=== PATIENT | female | born 1985 | race Caucasian/White ===

== ENCOUNTER 2022-07-20 22:14 | Emergency (ER) | payer SELFPAY ==
[2022-07-20 22:14] VITALS: BP 148/79; PULSE 114; RESP 16; TEMP 36.8; O2SAT 97; BMI 31.8
[2022-07-20 22:16] VITALS: BP 148/79; PULSE 115; O2SAT 97
[2022-07-20 22:30] VITALS: BP 141/82; PULSE 108; O2SAT 96
--- NOTE | 2022-07-20 22:50 | CT_ITS ---
PROCEDURE INFORMATION: Exam: CT Head Without Contrast Exam date and time: 07/20/2022 11:55 PM Age: 37 years old Clinical indication: Stroke-like symptoms; Generalized numbness/paresthesia; Additional info: New numbness, paresthesias TECHNIQUE: Imaging protocol: Computed tomography of the head without contrast. Radiation optimization: All CT scans at this facility use at least one of these dose optimization techniques: automated exposure control; mA and/or kV adjustment per patient size (includes targeted exams where dose is matched to clinical indication); or iterative reconstruction. Other technique: STROKE PROTOCOL was implemented. COMPARISON: HEADWO CT head/brain wo con 12/31/2018 1:06 PM FINDINGS: Brain: Normal appearing brain parenchyma without intraparenchymal hemorrhage and normal cain-white matter differentiation/no obvious acute ischemic stroke. No intra-or extra-axial fluid collection, no supra-or infratentorial mass, no mass effect or midline shift. Cerebral ventricles: Ventricles, sulci and basal cisterns are normal in size without hydrocephalus. Paranasal sinuses: No significant mucoperiosteal thickening in the visualized paranasal sinuses. Mastoid air cells: No mastoid effusion. Bones/joints: Visualized skull bones are grossly normal. Soft tissues: NA IMPRESSION: No evidence of an acute intracranial hemorrhage, mass lesion or obvious acute ischemic infarction. ASSESSMENT: ASPECTS ([place] Stroke Program Early CT Score) is 10.
--- NOTE | 2022-07-20 22:50 | CT_ITS ---
PROCEDURE INFORMATION: Exam: CTA Head With Contrast, Arteriography Exam date and time: 07/20/2022 11:56 PM Age: 37 years old Clinical indication: Stroke-like symptoms; Generalized numbness/paresthesia; Additional info: New numbness, paresthesias TECHNIQUE: Imaging protocol: Computed tomographic angiography of the head with contrast. Exam focused on the arteries. 3D rendering (Not supervised by radiologist): MIP and/or 3D reconstructed images were created by the technologist. Radiation optimization: All CT scans at this facility use at least one of these dose optimization techniques: automated exposure control; mA and/or kV adjustment per patient size (includes targeted exams where dose is matched to clinical indication); or iterative reconstruction. Contrast material: ISVOUE 370; Contrast volume: 100 ml; Contrast route: INTRAVENOUS (IV); COMPARISON: CT HEAD/BRAIN WO CON 07/20/2022 11:55 PM FINDINGS: ANTERIOR CIRCULATION: Intracranial INTERNAL CAROTID arteries: Intracranial internal carotid arteries are without flow limiting stenosis. . MIDDLE cerebral arteries: M1, M2 and their distal visualized branches are without flow limiting stenosis. . ANTERIOR cerebral arteries: A1, A2 and their distal visualized branches are without flow limiting stenosis. Anterior communicating artery is unremarkable. . POSTERIOR CIRCULATION: VERTEBRAL arteries: Intracranial vertebral arteries and their visualized branches are without flow limiting stenosis. . BASILAR artery: The basilar artery and its visualized proximal branches are without flow limiting stenosis. . POSTERIOR cerebral arteries: P1, P2 and their distal visualized branches are without flow limiting stenosis. IMPRESSION: NO acute flow-limiting stenosis or aneurysm of the CENTRAL/major intracranial arteries. COMMENTS: Recommend followup with MRI if persistent/new/worsening symptoms or symptoms unexplained by the current study.
--- NOTE | 2022-07-20 22:50 | CT_ITS ---
PROCEDURE INFORMATION: Exam: CTA Neck With Contrast Exam date and time: 07/20/2022 11:56 PM Age: 37 years old Clinical indication: Stroke-like symptoms; Generalized numbness/paresthesia; Additional info: New numbness, paresthesias TECHNIQUE: Imaging protocol: Computed tomographic angiography of the neck with contrast. 3D rendering (Not supervised by radiologist): MIP and/or 3D reconstructed images were created by the technologist. Radiation optimization: All CT scans at this facility use at least one of these dose optimization techniques: automated exposure control; mA and/or kV adjustment per patient size (includes targeted exams where dose is matched to clinical indication); or iterative reconstruction. Contrast material: ISOVUE 370; Contrast volume: 100 ml; Contrast route: INTRAVENOUS (IV); COMPARISON: CT HEAD/BRAIN WO CON 07/20/2022 11:55 PM FINDINGS: THORACIC VESSELS: Visualized aortic arch is unremarkable. No significant narrowing of the origin of the neck vessels. . CAROTID VESSELS: Common carotid arteries: Common carotid arteries are without acute flow limiting stenosis. . Cervical internal CAROTID arteries: No acute flow-limiting stenosis of the cervical internal carotid arteries. No evidence of an aneurysm or a dissection. . VERTEBRAL VESSELS: VERTEBRAL arteries: Cervical vertebral arteries are without acute flow limiting stenosis. . OTHER STRUCTURES: Tonsillar enlargement with numerous mild to moderately enlarged reactive lymph nodes in the neck. Dependent atelectasis and groundglass opacities in the lung apices. IMPRESSION: 1. NO acute flow-limiting stenosis, no occlusion, aneurysm or dissection of the carotid and vertebral arteries in the neck. 2. Findings suspicious for tonsillitis/upper respiratory tract infection and reactive lymphadenitis. REFERENCES: NASCET CRITERIA. The degree of stenosis in the cervical segment of the internal carotid artery is based on NASCET criteria. Normal is no stenosis. Mild is less than 50% stenosis. Moderate is 50-69% stenosis. Severe is 70% to 99% stenosis. Total occlusion is no detectable patent lumen.
--- NOTE | 2022-07-20 22:56 | [facility].EDGENADL ---
Discharge Plan Disposition Patient Disposition: Home, Self-Care Condition: Good Referrals Follow up/Referrals: Provider,Referral, [Primary Care Provider] - See instructions Activity Restrictions/Add. Instructions Additional Instructions/Restrictions: You were evaluated in the emergency department today. Please follow-up with your primary care provider over the next 48 hours. Return to the emergency department for any new or worsening symptoms. Clinical Impressions Clinical Impression: Numbness and tingling Discharge ED Provider: Sary Downey General Adult HPI General Chief complaint: Neuro Symptoms/Deficit Stated complaint: REED & Nausea Time Seen by Provider: 07/20/22 22:20 Mode of Arrival: EMS Source of Information: Patient Limitations: No Limitations Description of Symptoms (Recalled from ER Triage Doc. by RN): pt c/o face feeling weird and arm and lags feeling heavy that started around 9pm History of Present Illness HPI narrative: This patient is a 37-year-old female presented to the emergency department for evaluation of generalized numbness and tingling and a feeling of being unwell. She states that this started around 9:00 PM after she got off the phone with her [id number]. She states that she tried to take a shower to see if that made her symptoms better, however it did not. She complains of numbness and tingling sensation on her entire body, from head to toes, both sides. No vision changes, weakness, facial droop, or other concerns noted at this time. No recent infectious symptoms, though her children at home do have mono. She was well prior to 9 PM when the symptoms started. Related Data Allergies Allergy/AdvReac Type Severity Reaction Status Date / Time No Known Allergies Allergy Verified 12/31/18 11:58 [facility] Social History Smoking Status: Never smoker alcohol intake: never current occupational status: employed Travel in the last 8 weeks: None ROS Obtained: Yes All systems reviewed & no additional complaints except as documented 14 point review of systems obtained and otherwise negative except as mentioned in HPI Physical Exam General General appearance: alert and in no apparent distress Head Head exam: atraumatic and normocephalic Eye Eye exam: Present normal appearance, PERRL and EOMI ENT ENT exam: Present normal exam and normal oropharynx Neck Neck exam: Present normal inspection and full ROM Chest Chest inspection: Present normal inspection and symmetric chest wall rise Respiratory Respiratory exam: Present normal lung sounds bilaterally and respiratory distress Cardiovascular Cardiovascular exam: Present regular rate and normal rhythm Abdominal Exam Abdominal exam: Present soft; Absent distention, tenderness or guarding Extremities Exam Extremities exam: Present normal inspection and full ROM Back Exam Back exam: Present normal inspection Neurological Exam Neurological exam: Present alert, oriented X3 and CN II-XII intact; Absent motor sensory deficit Expanded Neurological Exam Patient oriented to: Present person, place and time Cranial nerves: Normal: EOM function (II, III, IV, ), facial sensation (V), facial palsy (VII), spinal accessory function (XI) and tongue deviation (XII) Cerebellar function: Normal: finger to nose and heel to shi Motor strength - LUE: 5/5 Motor strength - RUE: 5/5 Motor strength - LLE: 5/5 Motor strength - RLE: 5/5 Psychiatric Psychiatric exam: Present normal affect and normal mood Skin Skin exam: Present warm and dry Medical Decision Making Medical Records Medical records reviewed: Yes I reviewed the patient's medical records. Chris Inquiry Pt receiving controlled substance: No Vital Signs: 07/20/22 22:14 07/20/22 23:31 07/20/22 22:16 Temperature 98.3 F Temperature Source Oral Pulse Rate 91 H 115 H Pulse Rate [Right] 114 H Respiratory Rate 16 Blood Pressure
[2022-07-20 23:00] VITALS: BP 131/95; PULSE 108; O2SAT 92
[2022-07-20 23:07] LABS: Basophils # 0.1 K/mm3 (0-0.2); Basophils % 0.8 % (0.1-2.0); Eosinophils # 0.1 K/mm3 (0.0-0.4); Eosinophils % 0.6 % (0.1-12.0); Hematocrit 40.4 % (37.0-47.0); Hemoglobin 13.4 g/dL (12.2-16.2); Lymphocytes # 2.6 K/mm3 (0.7-4.5); Lymphocytes % 22.1 % (10-50); Mean Corpuscular HGB Conc 33.1 g/dL (31.8-35.4); Mean Corpuscular Hemoglobin 28.6 pg (27.0-31.2); Mean Corpuscular Volume 86.4 fl (81-99); Monocytes # 0.8 K/mm3 (0.1-1.0); Monocytes % 6.5 % (1.7-9.3); Neutrophils # 8.3 K/mm3 (1.8-7.8); Neutrophils % 70.1 % (37.0-80.0); Platelet Count 387 K/mm3 (142-424); Red Blood Count 4.67 M/mm3 (4.20-5.40); Red Cell Distribution Width 13.4 % (11.5-17.5); White Blood Count 11.8 K/mm3 (4.8-10.8)
[2022-07-20 23:09] LABS: Chloride 101 mmol/L (98-107); Potassium 3.5 mmoL/L (3.5-5.1); Sodium 138 mmol/L (136-145)
[2022-07-20 23:11] LABS: Blood Urea Nitrogen 8 mg/dl (7-17); HCG Qualitative, Serum Negative (Negative)
[2022-07-20 23:12] LABS: Alanine Aminotransferase 40 U/L (12-78); Albumin Level 4.5 g/dl (3.5-5.0); Albumin/Globulin Ratio 1.2 (1.1-1.8); Alkaline Phosphatase 107 U/L (38-126); Anion Gap 15.5 mEq/L (5-15); Aspartate Amino Transferase 41 U/L (14-36); Bilirubin,Total 0.4 mg/dl (0.2-1.3); Calcium 8.8 mg/dl (8.4-10.2); Carbon Dioxide 25 mmol/L (22.0-30.0); Creatinine Clearance Estimated 142 mL/min (50-200); Estimated Glomerular Filt Rate 111 ml/min (>60); GFR (African American) 135 ML/MIN (>60); Globulin 3.7 g/dL (1.3-3.2); Glucose 112 mg/dl (74-100); Magnesium 1.8 mg/dl (1.6-2.3); Total Protein,Serum 8.2 g/dl (6.3-8.2)
[2022-07-20 23:31] VITALS: BP 110/72; PULSE 91; O2SAT 94
--- NOTE | 2022-07-20 23:55 | ECG_ITS ---
APPROVED REPORT Exam: Resting ECG HR:80 bpm ECG Measurements Heart Rate 80 AXES NE 159 P 56 QRSd 88 QRS 64 QT 379 T 36 QTc 415 Conclusion SINUS RHYTHM LOW QRS VOLTAGE IN PRECORDIAL LEADS [QRS DEFLECTION < 1.0 mV IN CHEST LEADS] BORDERLINE ECG UNCONFIRMED REPORT Electronically signed by : Khanh Montana MD 07/21/2022 21:06:34
[2022-07-21 00:11] LABS: Appearance,Urine CLEAR (Clear); Bilirubin,Urine Negative (Negative); Blood, Urine 1+ (Negative); Color,Urine YELLOW (Yellow); Glucose,Urine (UA) Negative (Negative); Ketones,Urine TRACE (Negative); Leukocyte Esterase,Urine 1+ (Negative); Microscopic, Urine URINE MICROSCOPIC (MICROSCOPIC); Nitrate,Urine Negative (Negative); Protein,Urine Negative (Negative); Specific Gravity, Urine 1.025 (1.005-1.030); Urobilinogen,Urine 0.2 EU/dl (0.2)
[2022-07-21 00:32] LABS: Amorphous Sediment,Urine Trace /lpf; Bacteria,Urine 2+ /lpf
[2022-07-21 02:03] VITALS: BP 115/74; PULSE 92; RESP 16; TEMP 36.8; O2SAT 95
== END 2022-07-21 02:05 | disposition home or self-care (01) ==
PROVIDERS: Emergency Provider Emergency Medicine
DX: R20.0 Anesthesia of skin (principal)
CPT/HCPCS: 70450; 70496; 70498; 80053; 81001; 83735; 84703; 85025; 87086; 93005; 96365; 96375; 99285; Q9967